=== PATIENT | female | born 1975 | race Hispanic/Latino ===

== ENCOUNTER 2016-11-04 23:01 | Emergency (ER) | payer MEDICAID ==
[2016-11-05] MEDS ORDERED: BENADRYL PO ONE (02:34)
[2016-11-05 07:20] VITALS: BP 130/79
--- NOTE | 2016-11-05 07:28 | Emergency Department Report ---
ED General Adult HPI - General Chief complaint: Allergic Reaction Stated complaint: ALLERGIC REACTION Time Seen by Provider: 11/05/16 07:03 Source: patient, family Mode of arrival: Ambulatory Limitations: No Limitations - History of Present Illness Initial comments: Patient here complaining that she took some penicillin tablets at 7 PM and a few minutes later she started feeling itchy throat. She says she fell on her knee and injured her right knee because she was nervous. She reports right knee pain at 8 out of 10. Denies any nausea vomiting. Denies any cough or shortness of breath at present. She was given Benadryl and steroid upon initial arrival to the emergency room. Denies any numbness or tingling to extremities. Denies any skin rash at present. MD Complaint: right knee pain and allergic reaction -: Last night Location: right, lower extremity Radiation: non-radiation Severity scale (0 -10): 9 Quality: aching Consistency: intermittent Improves with: immobilization, rest Worsens with: movement Associated Symptoms: other (allergic reaction). denies: confusion, chest pain, cough, diaphoresis, fever/chills, headaches, loss of appetite, malaise, nausea/ vomiting, rash, seizure, shortness of breath, syncope, weakness Treatments Prior to Arrival: none - Related Data Home Medications Medication Instructions Recorded Confirmed Last Taken Amitriptyline 125 mg PO HS 11/05/16 11/05/16 Unknown Bumetanide 1 mg PO DAILY 11/05/16 11/05/16 Unknown Fioricet 1 tab PO Q6H PRN 11/05/16 11/05/16 Unknown Lisinopril 20 mg PO DAILY 11/05/16 11/05/16 Unknown Meclizine 25 mg PO DAILY 11/05/16 11/05/16 Unknown Pantoprazole [Protonix] 40 mg PO QDAY 11/05/16 11/05/16 Unknown Previous Rx's Medication Instructions Recorded Last Taken Type Cetirizine HCl [ZyrTEC] 10 mg PO QDAY #5 capsule 11/05/16 Unknown Rx Famotidine [Pepcid] 20 mg PO BID #10 tablet 11/05/16 Unknown Rx predniSONE [Deltasone] 50 mg PO QDAY #3 tab 11/05/16 Unknown Rx Allergies Allergy/AdvReac Type Severity Reaction Status Date / Time iodine Allergy Hives Verified 11/05/16 07:11 ketorolac tromethamine Allergy Rash Verified 11/05/16 07:11 [From Toradol] Penicillins Allergy Hives Verified 11/05/16 07:11 shellfish derived Allergy Hives Verified 11/05/16 07:11 sumatriptan [From Imitrex] Allergy Rash Verified 11/05/16 07:11 sumatriptan succinate Allergy Rash Verified 11/05/16 07:11 [From Imitrex] tramadol HCl [From Ultram] Allergy Hives Verified 11/05/16 07:11 ED Review of Systems ROS: Stated complaint: ALLERGIC REACTION Other details as noted in HPI Comment: All other systems reviewed and negative Constitutional: denies: chills, fever Eyes: denies: eye pain, eye discharge ENT: denies: ear pain, throat pain, congestion Respiratory: no symptoms reported Cardiovascular: denies: chest pain, palpitations, edema, syncope Gastrointestinal: denies: abdominal pain, nausea, vomiting Genitourinary: denies: urgency, dysuria, frequency, hematuria, discharge Musculoskeletal: joint swelling, arthralgia. denies: back pain Skin: rash Neurological: abnormal gait (right knee injury). denies: headache, weakness, numbness, paresthesias, confusion, vertigo ED Past Medical Hx - Past Medical History Previous Medical History?: Yes Hx Hypertension: Yes Hx GERD: Yes Hx Headaches / Migraines: Yes Hx Kidney Stones: Yes Hx Asthma: Yes Additional medical history: morbid obesity - Surgical History Past Surgical History?: Yes Additional Surgical History: Right Knee, C- section, Left leg hardware - Family History Family history: no significant - Social History Smoking Status: Never Smoker Substance Use Type: None - Medications Home Medications: Home Medications Medication Instructions Recorded Confirmed Last Taken Type Amitriptyline 125 mg PO HS 11/05/16 11/05/16 Unknown History Bumetanide 1 mg PO DAILY 11/05/16 11/05/16 Unknown History Cetirizine HCl [ZyrTEC] 10 mg PO QDAY #5 capsule 11/05/16 Unknown Rx Famotidine [Pepcid] 20 mg PO BID #10 tablet 11/05/16 Unknown Rx Fioricet 1 tab PO Q6H PRN 11/05/16 11/05/16 Unknown History Lisinopril 20 mg PO DAILY 11/05/16 11/05/16 Unknown History Meclizine 25 mg PO DAILY 11/05/16 11/05/16 Unknown History Pantoprazole [Protonix] 40 mg PO QDAY 11/05/16 11/05/16 Unknown History predniSONE [Deltasone] 50 mg PO QDAY #3 tab 11/05/16 Unknown Rx ED Physical Exam - General Limitations: No Limitations General appearance: alert, in no apparent distress - Head Head exam: Present: atraumatic, normocephalic, normal inspection - Eye Eye exam: Present: normal appearance, PERRL, EOMI. Absent: periorbital swelling , periorbital tenderness Pupils: Present: normal accommodation - ENT ENT exam: Present: normal exam, normal orophraynx, mucous membranes moist, TM's normal bilaterally, normal external ear exam - Neck Neck exam: Present: normal inspection, full ROM. Absent: tenderness, meningismus, lymphadenopathy - Expanded Neck Exam Expanded Neck exam: Absent: tenderness, midline deformity, anterior neck swelling, tracheal deviation - Respiratory Respiratory exam: Present: normal lung sounds bilaterally. Absent: respiratory distress, wheezes, rales, rhonchi, stridor, chest wall tenderness - Cardiovascular Cardiovascular Exam: Present: regular rate, normal rhythm, normal heart sounds - GI/Abdominal GI/Abdominal exam: Present: soft, normal bowel sounds. Absent: distended, tenderness, guarding, rebound, rigid - Expanded Lower Extremity Exam Right Hip exam: Present: normal inspection, full ROM, pelvic stability. Absent: tenderness, swelling, abrasion, laceration, ecchymosis, deformity, crepidus, dislocation, erythema, external rotation, internal rotation, shortening Upper Leg exam: Present: normal inspection, full ROM. Absent: tenderness, swelling, abrasion, laceration, ecchymosis, deformity, crepidus, dislocation, erythema Knee exam: Present: normal inspection, tenderness (tender to palpate right anterior knee), swelling (mild swelling to right knee), full knee extension. Absent: full ROM (Limited range of motion to right knee injury and pain.), abrasion, laceration, ecchymosis, deformity, crepidus, dislocation, erythema, effusion, pain w/ pronation/supination, pain/laxity with valgus, pain/laxity with varus Lower Leg exam: Present: normal inspection, full ROM. Absent: tenderness, swelling, abrasion, laceration, ecchymosis, deformity, crepidus, dislocation, erythema, palpable cord, Venkata's sign Ankle exam: Present: normal inspection, full ROM. Absent: tenderness, swelling , abrasion, laceration, ecchymosis, deformity, crepidus, dislocation, erythema Foot/Toe exam: Present: normal inspection, full ROM. Absent: tenderness, swelling, abrasion, laceration, ecchymosis, deformity, crepidus, dislocation, erythema, amputation, puncture wound, foreign body, calcaneal tenderness, tenderness at base of 5th metatarsal, nail avulsion, subungual hematoma Neuro vascular tendon exam: Present: no vascular compromise. Absent: pulse deficit, abnormal cap refill, motor deficit, sensory deficit, tendon deficit, extremity cold to touch, pallor, abnormal 2-point discrimination, decreased fine /light touch, foot drop, peroneal nerve deficit, significant pain with passive ROM of distal joint Gait: Positive: observed and limited by pain - Back Exam Back exam: Present: normal inspection, full ROM. Absent: tenderness, CVA tenderness (R), CVA tenderness (L), muscle spasm, paraspinal tenderness, vertebral tenderness, rash noted - Neurological Exam Neurological exam: Present: alert, oriented X3, abnormal gait ( right knee injury), reflexes normal - Psychiatric Psychiatric exam: Present: normal affect, normal mood - Skin Skin exam: Present: warm, dry, intact, normal color. Absent: rash ED Course Vital Signs 11/05/16 11/05/16 11/05/16 02:14 07:19 08:01 Temperature 97.9 F Pulse Rate 81 90 Respiratory 81 H 20 20 Rate Blood Pressure 147/84 Blood Pressure 147/84 130/79 [Left] O2 Sat by Pulse 98 98 98 Oximetry - Reevaluation(s) Reevaluation #1: 11/05/16 08:18 Patient given Medrol 125 mg IM and Benadryl 50 mg by mouth 11/05/16 08:18 - Orthopedic Splinting/Casting Injury #1 Side: right Lower Extremity Injury Location: knee Lower Extremity Immobilizer: Thompson wrap ED Medical Decision Making - Radiology Data Radiology results: report reviewed X-ray of right knee reveals normal exam - Medical Decision Making ED course: She is with diagnosis of knee injury and right knee sprain and status post allergic reaction from accidental taking penicillin.Patient given Medrol 125 mg IM and Benadryl 50 mg by mouth. I discussed the patient diagnosis and treatment plan and she is in agreement. Discharged home with prescription for Zyrtec and prednisone and to return to the hospital is she develops any difficulty breathing, and closing of her throat, rash and shortness of breath. I also instructed her to follow-up with orthopedic doctor she says continues to have pain in her right knee. Seizure note for splinting details. Critical care attestation.: If time is entered above; I have spent that time in minutes in the direct care of this critically ill patient, excluding procedure time. ED Disposition Clinical Impression: Right knee sprain Qualifiers: Encounter type: initial encounter Involved ligament of knee: unspecified ligament Qualified Code(s): S83.91XA - Sprain of unspecified site of right knee , initial encounter Knee pain, right Qualifiers: Chronicity: acute Qualified Code(s): M25.561 - Pain in right knee Allergic reaction caused by a drug Qualifiers: Encounter type: initial encounter Qualified Code(s): T78.40XA - Allergy, unspecified, initial encounter Disposition: DISCHARGED TO HOME OR SELFCARE Is pt being admited?: No Does the pt Need Aspirin: No Condition: Stable Instructions: Arthralgia (ED), Knee Sprain (ED), Knee Exercises (GEN), Antibiotic Medication Allergy (ED) Additional Instructions: Please refrain from taking penicillin-based medication Please follow up with primary care physician in 24 hours and if you do not have one he can follow up with [facility] Rest, ice, compress and elevate affected area for 72 hours. if you continued to have pain in her right knee, please follow-up with orthopedic doctor. Take medication as prescribed Prescriptions: Cetirizine HCl [ZyrTEC] 10 mg PO QDAY #5 capsule Famotidine [Pepcid] 20 mg PO BID #10 tablet predniSONE [Deltasone] 50 mg PO QDAY #3 tab Referrals: MARCI REBOLLAR MD [Primary Care Provider] - 11/06/16 [facility] [Outside] - 3-5 Days TRISTIAN MORALES MD [Staff Physician] - 11/06/16 Forms: Accompanied Note, Work/School Release Form(ED)
--- NOTE | 2016-11-05 08:06 | XRay Report ---
FINAL REPORT PROCEDURE: XR KNEE 3V RT TECHNIQUE: RIGHT knee radiographs, AP, lateral and oblique views. CPT 50568 HISTORY: right knee injury COMPARISON: No prior studies are available for comparison. FINDINGS: Fracture (s) and/or Dislocation(s): None . Alignment: Normal . Joint space(s): Normal . Soft tissues: Normal . Bone mineralization: Normal . Foreign bodies: None . IMPRESSION: Normal Examination.
== END 2016-11-05 08:38 | disposition home or self-care (01) ==
LOC: ED 23:01
DX: S83.91XA Sprain of unspecified site of right knee, initial encounter (principal); T36.0X5A Adverse effect of penicillins, initial encounter; K21.9 Gastro-esophageal reflux disease without esophagitis; J45.909 Unspecified asthma, uncomplicated; I10 Essential (primary) hypertension; G43.909 Migraine, unspecified, not intractable, without status migrainosus; E66.01 Morbid (severe) obesity due to excess calories; Z91.013 Allergy to seafood; Z88.0 Allergy status to penicillin; Z88.8 Allergy status to other drugs, medicaments and biological substances; W18.39XA Other fall on same level, initial encounter; Y93.89 Activity, other specified; Y92.89 Other specified places as the place of occurrence of the external cause; Y99.8 Other external cause status
CPT/HCPCS: 73562; 96372; 99283; J2930

== ENCOUNTER 2017-12-06 20:26 | Emergency (ER) | payer MEDICAID ==
[2017-12-06 20:37] VITALS: BP 160/97
--- NOTE | 2017-12-06 21:44 | XRay Report ---
FINAL REPORT PROCEDURE: Left knee. TECHNIQUE: Three views. HISTORY: Knee injury. COMPARISON: No prior studies are available for comparison. FINDINGS: The bones appear intact without fracture. There is an intramedullary antonio in the tibia. There is an old healed fracture of the proximal diaphysis of the fibula. The joint spaces appear satisfactory. The soft tissues are unremarkable. There is no evidence of a knee effusion. IMPRESSION: Old fractures of the tibia and fibula. No evidence of acute disease.
--- NOTE | 2017-12-06 21:47 | XRay Report ---
FINAL REPORT PROCEDURE: Left tibia and fibula. TECHNIQUE: AP and lateral views. HISTORY: Leg injury. COMPARISON: No prior studies are available for comparison. FINDINGS: There are healed fractures of the proximal fibula and the distal tibia. There is an intramedullary antonio in place within the tibia. The joint spaces appear normal. The soft tissues are unremarkable. IMPRESSION: Old fractures of the tibia and fibula.
[2017-12-06] MEDS ORDERED: TYLENOL PO ONE (22:25)
--- NOTE | 2017-12-06 22:26 | Emergency Department Report ---
ED Lower Extremity HPI - General Chief Complaint: Extremity Injury, Lower Stated Complaint: LEG PAIN / FALL Time Seen by Provider: 12/06/17 22:11 Source: patient Mode of arrival: Wheelchair Limitations: No Limitations - History of Present Illness Initial Comments: This is a 12-year-old male brought by mother nontoxic, well nourished in appearance, no acute signs of distress presents to the ED with c/o of left knee and tib/fib pain status post fall that occurred today. Patient stated she slipped and fell. Patient has a history of tib-fib fracture. Patient stated that she did not have any trauma to the head or any other extremities. Patient denies any joint redness, joint swelling, fever, chills, nausea, vomiting, chest pain or shortness breath. Patient denies abnormal or decreased gait. Allergies includes Toradol, penicillin, Imitrex, and Ultram. PMH includes asthma , GERD, hypertension and chronic headaches. MD Complaint: knee injury, leg injury -: This afternoon Injury: Leg: Left, Knee: Left Type of Injury: blunt Place: home Severity: mild Severity scale (0 -10): 8 Improves With: immobilization Worsens With: movement Context: fall Associated Symptoms: able to partially bear weight, ambulatory. denies: snap/ pop sensation, swelling, numbness, tingling, unable to bear weight - Related Data Home Medications Medication Instructions Recorded Confirmed Last Taken Amitriptyline 125 mg PO HS 11/05/16 11/05/16 Unknown Bumetanide 1 mg PO DAILY 11/05/16 11/05/16 Unknown Fioricet 1 tab PO Q6H PRN 11/05/16 11/05/16 Unknown Lisinopril 20 mg PO DAILY 11/05/16 11/05/16 Unknown Meclizine 25 mg PO DAILY 11/05/16 11/05/16 Unknown Pantoprazole [Protonix] 40 mg PO QDAY 11/05/16 11/05/16 Unknown Previous Rx's Medication Instructions Recorded Last Taken Type Cetirizine HCl [ZyrTEC] 10 mg PO QDAY #5 capsule 11/05/16 Unknown Rx Famotidine [Pepcid] 20 mg PO BID #10 tablet 11/05/16 Unknown Rx predniSONE [Deltasone] 50 mg PO QDAY #3 tab 11/05/16 Unknown Rx Acetaminophen 500 mg PO Q8H PRN #30 tablet 12/06/17 Unknown Rx Allergies Allergy/AdvReac Type Severity Reaction Status Date / Time iodine Allergy Hives Verified 11/05/16 07:11 ketorolac tromethamine Allergy Rash Verified 11/05/16 07:11 [From Toradol] Penicillins Allergy Hives Verified 11/05/16 07:11 shellfish derived Allergy Hives Verified 11/05/16 07:11 sumatriptan [From Imitrex] Allergy Rash Verified 11/05/16 07:11 sumatriptan succinate Allergy Rash Verified 11/05/16 07:11 [From Imitrex] tramadol HCl [From Ultram] Allergy Hives Verified 11/05/16 07:11 ED Review of Systems ROS: Stated complaint: LEG PAIN / FALL Other details as noted in HPI Constitutional: denies: chills, fever Eyes: denies: eye pain, eye discharge, vision change ENT: denies: ear pain, throat pain Respiratory: denies: cough, shortness of breath, wheezing Cardiovascular: denies: chest pain, palpitations Endocrine: no symptoms reported Gastrointestinal: denies: abdominal pain, nausea, diarrhea Genitourinary: denies: urgency, dysuria, discharge Musculoskeletal: arthralgia. denies: back pain, joint swelling Skin: denies: rash, lesions Neurological: denies: headache, weakness, paresthesias Psychiatric: denies: anxiety, depression Hematological/Lymphatic: denies: easy bleeding, easy bruising ED Past Medical Hx - Past Medical History Hx Hypertension: Yes Hx GERD: Yes Hx Headaches / Migraines: Yes Hx Kidney Stones: Yes Hx Asthma: Yes Additional medical history: morbid obesity - Surgical History Past Surgical History?: Yes Additional Surgical History: Right Knee, C- section, Left leg hardware - Social History Smoking Status: Never Smoker Substance Use Type: None - Medications Home Medications: Home Medications Medication Instructions Recorded Confirmed Last Taken Type Amitriptyline 125 mg PO HS 11/05/16 11/05/16 Unknown History Bumetanide 1 mg PO DAILY 11/05/16 11/05/16 Unknown History Cetirizine HCl [ZyrTEC] 10 mg PO QDAY #5 capsule 11/05/16 Unknown Rx Famotidine [Pepcid] 20 mg PO BID #10 tablet 11/05/16 Unknown Rx Fioricet 1 tab PO Q6H PRN 11/05/16 11/05/16 Unknown History Lisinopril 20 mg PO DAILY 11/05/16 11/05/16 Unknown History Meclizine 25 mg PO DAILY 11/05/16 11/05/16 Unknown History Pantoprazole [Protonix] 40 mg PO QDAY 11/05/16 11/05/16 Unknown History predniSONE [Deltasone] 50 mg PO QDAY #3 tab 11/05/16 Unknown Rx Acetaminophen 500 mg PO Q8H PRN #30 tablet 12/06/17 Unknown Rx ED Physical Exam - General Limitations: No Limitations General appearance: alert, in no apparent distress - Head Head exam: Present: atraumatic, normocephalic - Eye Eye exam: Present: normal appearance Pupils: Present: normal accommodation - ENT ENT exam: Present: normal exam, mucous membranes moist - Neck Neck exam: Present: normal inspection, full ROM. Absent: tenderness, meningismus - Respiratory Respiratory exam: Present: normal lung sounds bilaterally. Absent: respiratory distress, wheezes, rales, rhonchi, stridor - Cardiovascular Cardiovascular Exam: Present: regular rate, normal rhythm, normal heart sounds. Absent: irregular rhythm, systolic murmur, diastolic murmur, rubs, gallop - GI/Abdominal GI/Abdominal exam: Present: soft, normal bowel sounds. Absent: distended, tenderness, guarding, rebound, rigid, diminished bowel sounds - Rectal Rectal exam: Present: deferred - Extremities Exam Extremities exam: Present: normal inspection, full ROM, tenderness, normal capillary refill. Absent: pedal edema, joint swelling, calf tenderness - Expanded Lower Extremity Exam Left Hip exam: Present: normal inspection, full ROM. Absent: tenderness, swelling Upper Leg exam: Present: normal inspection, full ROM. Absent: tenderness, swelling Knee exam: Present: normal inspection, full ROM, tenderness, full knee extension. Absent: swelling, abrasion, laceration, ecchymosis, deformity, crepidus, dislocation, erythema, effusion, pain w/ pronation/supination, posterior draw sign, pain/laxity with valgus, pain/laxity with varus Lower Leg exam: Present: normal inspection, full ROM, tenderness. Absent: swelling, abrasion, laceration, ecchymosis, deformity, crepidus, dislocation, erythema, palpable cord, Venkata's sign Ankle exam: Present: normal inspection, full ROM. Absent: tenderness, swelling Foot/Toe exam: Present: normal inspection, full ROM. Absent: tenderness, swelling Neuro vascular tendon exam: Present: no vascular compromise. Absent: pulse deficit, abnormal cap refill, motor deficit, sensory deficit, tendon deficit, extremity cold to touch, pallor, abnormal 2-point discrimination, decreased fine /light touch, foot drop, peroneal nerve deficit, significant pain with passive ROM of distal joint Gait: Positive: observed and limited by pain - Back Exam Back exam: Present: normal inspection, full ROM. Absent: tenderness, CVA tenderness (R), CVA tenderness (L), paraspinal tenderness, vertebral tenderness - Neurological Exam Neurological exam: Present: alert, oriented X3, normal gait - Psychiatric Psychiatric exam: Present: normal affect, normal mood - Skin Skin exam: Present: warm, dry, intact, normal color. Absent: rash ED Course Vital Signs 12/06/17 20:31 Temperature 98.3 F Pulse Rate 93 H Respiratory 16 Rate Blood Pressure 160/97 O2 Sat by Pulse 95 Oximetry - Reevaluation(s) Reevaluation #1: 12/06/17 22:26 Patient is speaking in full sentences with no signs of distress noted. ED Lower Extremity MDM - Medical Decision Making This is a 42-year-old female that presents with left knee and leg strain. Patient is stable and was examined by me. I referred patient to an orthopedic doctor for further evaluation for possible MRI. X-ray has been obtained and dictated by the radiologist. Patient is notified of the x-ray report with noted by the patient. Patient does have normal gait with no tenderness and no joint swelling. No ecchymosis. no joint redness or swelling. Not warm to touch. No signs of cellulites present. Patient stated she has crutches at home. Patient was instructed to RICE therapy. Patient received Tylenol for pain. Patient is discharged with Tylenol. At time of discharge, the patient does not seem toxic or ill in appearance. No acute signs of distress noted. Patient agrees to discharge treatment plan of care. No further questions noted by the patient. Patient is discharge patient is discharged with Tylenol. [facility] shows that patient has been receiving 31 prescriptions for different narcotics by different providers. Critical care attestation.: If time is entered above; I have spent that time in minutes in the direct care of this critically ill patient, excluding procedure time. ED Disposition Clinical Impression: Strain of left knee and leg Qualifiers: Encounter type: initial encounter Qualified Code(s): S86.912A - Strain of unspecified muscle(s) and tendon(s) at lower leg level, left leg, initial encounter Disposition: TO HOME OR SELFCARE Is pt being admited?: No Does the pt Need Aspirin: No Condition: Stable Instructions: Knee Pain (ED), RICE Therapy (ED), Acetaminophen (By mouth) Additional Instructions: Follow-up with a orthopedic doctor in 3-5 days or if symptoms worsen and continue return to emergency room as soon as possible. Prescriptions: Acetaminophen 500 mg PO Q8H PRN #30 tablet PRN Reason: Pain Referrals: PRIMARY CAREMD [Referring] - 3-5 Days TRISTIAN MORALES MD [Staff Physician] - 3-5 Days [facility] [Outside] - 3-5 Days [facility] [Outside] - 3-5 Days
== END 2017-12-06 22:37 | disposition home or self-care (01) ==
LOC: ED 20:26
DX: S86.912A Strain of unspecified muscle(s) and tendon(s) at lower leg level, left leg, initial encounter (principal); I10 Essential (primary) hypertension; K21.9 Gastro-esophageal reflux disease without esophagitis; J45.909 Unspecified asthma, uncomplicated; Z88.0 Allergy status to penicillin; Z91.013 Allergy to seafood; Z87.442 Personal history of urinary calculi; W01.198A Fall on same level from slipping, tripping and stumbling with subsequent striking against other object, initial encounter; Y93.89 Activity, other specified; Y92.89 Other specified places as the place of occurrence of the external cause; Y99.8 Other external cause status
CPT/HCPCS: 99283

== ENCOUNTER 2021-01-20 09:43 | Emergency (ER) | payer MEDICAID, OTHER ==
[2021-01-20 10:46] LABS: Bacteria,Urine 3+ /HPF (Negative); Bilirubin,Urine NEG (Negative); Blood,Urine SM (Negative); Color,Urine Straw (Yellow); Mucus,Urine FEW /HPF; Protein,Urine <15 mg/dL mg/dL (Negative); Urobilinogen,Urine < 2.0 mg/dL (<2.0)
[2021-01-20] MEDS ORDERED: MORPHINE 4 MG/1 ML INJ IV ONE (10:57)
[2021-01-20] MEDS ORDERED: ONDANSETRON 4 MG/2 ML INJ IV ONE (10:57)
[2021-01-20] MEDS ORDERED: SODIUM CHLORIDE 0.9% 1000 ML 1,000 ML IV ONE (10:57)
[2021-01-20] MEDS ORDERED: IBUPROFEN 800 MG TAB PO ONE (11:00)
--- NOTE | 2021-01-20 11:01 | Emergency Department Report ---
ED Abdominal Pain HPI - General Chief Complaint: Abdominal Pain Stated Complaint: KIDNEY PAIN Time Seen by Provider: 01/20/21 10:15 Source: patient Mode of arrival: Ambulatory Limitations: No Limitations - History of Present Illness Initial Comments: 45-year-old female with a past medical history of hypertension, migraine headaches, GERD, kidney stones and hypercalcemia presents to the ER today with complaints of bilateral flank pain radiating around to her lower abdomen. Patient states that her symptoms started yesterday. She reports gradual onset of pain but has been constant in nature. Patient reports associated dysuria, and urinary frequency but she denies any hematuria. She reports nausea but no vomiting. She denies any diarrhea or constipation. She denies any fever or chills. She states that the last time she had a flareup of kidney stone was in May 2020 and at that time she had to have a ureteral stent placed. [place] urologist is in [place] but she does not recall his name. MD Complaint: flank pain -: Gradual, days(s) (1) - Related Data Home Medications Medication Instructions Recorded Confirmed Last Taken Amitriptyline 125 mg PO HS 11/05/16 11/05/16 Unknown Fioricet 1 tab PO Q6H PRN 11/05/16 11/05/16 Unknown Lisinopril 20 mg PO DAILY 11/05/16 11/05/16 01/20/21 Pantoprazole [Protonix] 40 mg PO QDAY 11/05/16 11/05/16 Unknown Previous Rx's Medication Instructions Recorded Last Taken Type Cetirizine HCl [ZyrTEC] 10 mg PO QDAY #5 capsule 11/05/16 Unknown Rx Famotidine [Pepcid] 20 mg PO BID #10 tablet 11/05/16 Unknown Rx HYDROcodone/APAP 7.5-325 [[place] 1 each PO Q6HR PRN #12 tablet 01/20/21 Unknown Rx 7.5/325] Ondansetron [Zofran Odt] 4 mg PO Q8HR PRN #12 tab.rapdis 01/20/21 Unknown Rx cephALEXin [Keflex] 500 mg PO Q6HR #40 capsule 01/20/21 Unknown Rx Allergies Allergy/AdvReac Type Severity Reaction Status Date / Time iodine Allergy Hives Verified 11/05/16 07:11 ketorolac tromethamine Allergy Rash Verified 11/05/16 07:11 [From Toradol] Penicillins Allergy Hives Verified 11/05/16 07:11 shellfish derived Allergy Hives Verified 11/05/16 07:11 sumatriptan [From Imitrex] Allergy Rash Verified 11/05/16 07:11 sumatriptan succinate Allergy Rash Verified 11/05/16 07:11 [From Imitrex] tramadol HCl [From Ultram] Allergy Hives Verified 11/05/16 07:11 ED Review of Systems ROS: Stated complaint: KIDNEY PAIN Other details as noted in HPI Comment: All other systems reviewed and negative Constitutional: denies: chills, fever Eyes: denies: eye pain, eye discharge, vision change ENT: denies: ear pain, throat pain, dental pain, hearing loss, epistaxis, congestion Respiratory: denies: cough, shortness of breath, SOB with exertion, SOB at rest, wheezing Cardiovascular: denies: chest pain, palpitations, dyspnea on exertion, edema, syncope, paroxysmal nocturnal dyspnea Gastrointestinal: abdominal pain, nausea. denies: vomiting, diarrhea, constipation, hematemesis, melena, hematochezia Genitourinary: denies: urgency, dysuria, frequency, hematuria, discharge, abn ormal menses, dyspareunia Musculoskeletal: back pain. denies: joint swelling, arthralgia Skin: denies: rash, lesions, change in color, change in hair/nails, pruritus Neurological: denies: headache, weakness, numbness, paresthesias, confusion, abnormal gait, vertigo Psychiatric: denies: anxiety, depression, auditory hallucinations, visual hallucinations, homicidal thoughts, suicidal thoughts Hematological/Lymphatic: denies: easy bleeding, easy bruising, swollen glands ED Past Medical Hx - Past Medical History Previous Medical History?: Yes Hx Hypertension: Yes Hx GERD: Yes Hx Headaches / Migraines: Yes Hx Kidney Stones: Yes Hx Asthma: Yes Additional medical history: morbid obesity - Surgical History Past Surgical History?: Yes Additional Surgical History: Right Knee, C- section, Left leg hardware - Social History Smoking Status: Never Smoker Substance Use Type: None - Medications Home Medications: Home Medications Medication Instructions Recorded Confirmed Last Taken Type Amitriptyline 125 mg PO HS 11/05/16 11/05/16 Unknown History Cetirizine HCl [ZyrTEC] 10 mg PO QDAY #5 capsule 11/05/16 Unknown Rx Famotidine [Pepcid] 20 mg PO BID #10 tablet 11/05/16 Unknown Rx Fioricet 1 tab PO Q6H PRN 11/05/16 11/05/16 Unknown History Lisinopril 20 mg PO DAILY 11/05/16 11/05/16 01/20/21 History Pantoprazole [Protonix] 40 mg PO QDAY 11/05/16 11/05/16 Unknown History HYDROcodone/APAP 7.5-325 [[place] 1 each PO Q6HR PRN #12 tablet 01/20/21 Unknown Rx 7.5/325] Ondansetron [Zofran Odt] 4 mg PO Q8HR PRN #12 tab.rapdis 01/20/21 Unknown Rx cephALEXin [Keflex] 500 mg PO Q6HR #40 capsule 01/20/21 Unknown Rx ED Physical Exam - General Limitations: No Limitations General appearance: alert, in distress (mild secondary to pain ), obese - Head Head exam: Present: atraumatic, normocephalic, normal inspection - Eye Eye exam: Present: normal appearance, PERRL, EOMI Pupils: Present: normal accommodation - Neck Neck exam: Present: normal inspection, full ROM - Respiratory Respiratory exam: Present: normal lung sounds bilaterally. Absent: respiratory distress, wheezes, rales, rhonchi, stridor - Cardiovascular Cardiovascular Exam: Present: regular rate, normal rhythm, normal heart sounds - GI/Abdominal GI/Abdominal exam: Present: soft. Absent: distended, tenderness, guarding, rebound - Back Exam Back exam: Present: normal inspection, full ROM, CVA tenderness (R) - Neurological Exam Neurological exam: Present: alert, oriented X3, CN II-XII intact, normal gait. Absent: motor sensory deficit - Psychiatric Psychiatric exam: Present: normal affect, normal mood - Skin Skin exam: Present: intact ED Course Vital Signs 01/20/21 01/20/21 01/20/21 09:50 10:10 10:26 Temperature 98.5 F Pulse Rate 84 Respiratory 18 Rate Blood Pressure 203/116 206/107 198/116 O2 Sat by Pulse 98 Oximetry 01/20/21 01/20/21 01/20/21 10:56 11:26 13:58 Temperature Pulse Rate Respiratory Rate Blood Pressure 199/121 189/114 202/111 O2 Sat by Pulse Oximetry ED Medical Decision Making - Lab Data Result diagrams: 01/20/21 11:25 01/20/21 11:25 - Medical Decision Making Labs reviewed-UA positive UTI, urine culture pending. Remaining labs unremarkable. CT abdomen pelvis shows nephrolithiasis but no urolithiasis, hydronephrosis or any other acute abnormalities. Patient appears to be resting comfortably in the bed. She states she still has some pain but not as bad as it was before. She does not appear to be in any significant pain distress or respiratory distress. She is not toxic or ill- appearing. No vomiting during stay. She appears well-hydrated. She is neurologically intact. Vital signs show improvement that her BP is still elevated but remaining VS stable. Pt states she took her bP meds earlier today. She currently has no symptoms related to her BP and no signs of endorgan damage. Recommend that she follow-up closely with her primary care doctor in regards to her blood pressure. Discussed CT and lab results with patient. Informed patient that we will start her on antibiotics. She states that she is taking Keflex before in the past. She also be given medication for pain and nausea. Recommend that she follows up with her urologist and her primary care doctor. Patient expressed understanding of instructions and agree with plan. Patient was stable at time of discharge. Critical care attestation.: If time is entered above; I have spent that time in minutes in the direct care of this critically ill patient, excluding procedure time. ED Disposition Clinical Impression: UTI (urinary tract infection), Nephrolithiasis Disposition: TO HOME OR SELFCARE Is pt being admited?: No Does the pt Need Aspirin: No Condition: Stable Instructions: Urinary Tract Infection, Adult, [id number], Abdominal Pain (ED) Additional Instructions: Take the zofran, norco and the keflex as prescribed. Drink lots of water. Follow up with your urologist and PCP. Return to ED if worse. Prescriptions: cephALEXin [Keflex] 500 mg PO Q6HR #40 capsule HYDROcodone/APAP 7.5-325 [[place] 7.5/325] 1 each PO Q6HR PRN #12 tablet PRN Reason: Pain Ondansetron [Zofran Odt] 4 mg PO Q8HR PRN #12 tab.rapdis PRN Reason: Nausea Referrals: PRIMARY CARE, [Primary Care Provider] - 3-5 Days Time of Disposition: 13:29
[2021-01-20 12:19] LABS: Alanine Aminotransferase 19 units/L (7-56); BUN/Creatinine Ratio 9; Blood Urea Nitrogen 9 mg/dL (7-17); Calcium 8.7 mg/dL (8.4-10.2); Hemolysis Index 1
[2021-01-20 12:31] LABS: Basophils % (Auto) 0.5 % (0.0-1.8); Eosinophils # (Auto) 0.1 K/mm3 (0.0-0.4); Eosinophils % (Auto) 1.8 % (0.0-4.3); Hematocrit 32.5 % (30.3-42.9); Hemoglobin 10.1 gm/dl (10.1-14.3); Lymphocytes # (Auto) 1.6 K/mm3 (1.2-5.4); Lymphocytes % (Auto) 22.8 % (13.4-35.0); Mean Corpuscular HGB Conc 31 % (30-34); Mean Corpuscular Volume 74 fl (79-97); Monocytes # (Auto) 0.6 K/mm3 (0.0-0.8); Monocytes % (Auto) 8.6 % (0.0-7.3); Platelet Count 322 K/mm3 (140-440); Red Cell Distribution Width 17.5 % (13.2-15.2)
--- NOTE | 2021-01-20 12:56 | Cat Scan Report ---
CT OF THE ABDOMEN AND PELVIS WITHOUT CONTRAST INDICATION / CLINICAL INFORMATION: Bilateral flank pain. TECHNIQUE: All CT scans at this location are performed using CT dose reduction for ALARA by means of automated exposure control. COMPARISON: None available. FINDINGS: ABDOMEN: The gallbladder is surgically absent. There are multiple nonobstructive renal calculi bilate rally. The largest calculus measures approximately 5 mm in the left lower pole. The liver, spleen, bi le ducts, pancreas, adrenal glands and bowel are normal. No adenopathy is present. There is mild subs egmental atelectasis in the right middle lobe. PELVIS: The distal ureters and urinary bladder are normal. The uterus and adnexal regions are unremar kable. No abnormal mass or fluid collection is seen. A normal appendix is present and there is no noah dence of diverticulitis. I do not identify a hernia. There is mild spondylosis. IMPRESSION: 1. Bilateral nonobstructive nephrolithiasis. 2. No acute abnormality is identified. Signer Name: Kp Sow MD Signed: 01/20/2021 12:52 PM Workstation Name: [id number]
[2021-01-20 13:05] LABS: Bilirubin,Direct < 0.2 mg/dL (0-0.2)
[2021-01-20] MEDS ORDERED: HYDROcodone/ACETAMINOPHEN 5-325 MG TAB PO ONE (13:33)
[2021-01-20 14:01] VITALS: BP 202/111
== END 2021-01-20 14:12 | disposition home or self-care (01) ==
LOC: ED 09:43
DX: N20.0 Calculus of kidney (principal); N39.0 Urinary tract infection, site not specified; I10 Essential (primary) hypertension; K21.9 Gastro-esophageal reflux disease without esophagitis; G43.909 Migraine, unspecified, not intractable, without status migrainosus; J45.909 Unspecified asthma, uncomplicated; Z98.890 Other specified postprocedural states; Z79.899 Other long term (current) drug therapy; Z88.0 Allergy status to penicillin; Z88.8 Allergy status to other drugs, medicaments and biological substances
CPT/HCPCS: 36415; 74176; 80048; 80076; 81001; 83690; 84703; 85025; 87076; 87086; 87186; 96361; 96374; 96375; 99284; J2270; J2405; J7030